=== PATIENT | male | born 1945 | race Asian ===

== ENCOUNTER 2023-12-06 12:40 | Outpatient (CLI) | payer MEDICARE, MEDICAID ==
[~2023-12-06 12:40] MED LIST: HYDR-3965 PO; OXYB5TAB21 PO; SULF1TAB49 PO
== END 2023-12-06 23:59 | disposition home or self-care (01) ==
LOC: RAD 12:40
PROVIDERS: ATTEND Nurse Practitioner Primary Care
DX: M17.0 Bilateral primary osteoarthritis of knee (principal); M25.511 Pain in right shoulder; M19.012 Primary osteoarthritis, left shoulder; M25.561 Pain in right knee; M19.011 Primary osteoarthritis, right shoulder
CPT/HCPCS: 73030; 73564